=== PATIENT | male | born 1960 | race Caucasian/White ===

== ENCOUNTER 2019-08-08 20:57 | Emergency (ER) | payer OTHER ==
[~2019-08-08] VITALS: Ht 182.9 cm; Wt 93.0 kg
[2019-08-08] MEDS ORDERED: ALBUTEROL INHALER (21:04)
[2019-08-08 21:34] LABS: INFLUENZA A ANTIGEN Negative (Negative); INFLUENZA B ANTIGEN Negative (Negative)
[2019-08-08 21:43] LABS: ABSOLUTE BASOPHILS 0.1 thou/uL (0.0-0.2); ABSOLUTE EOSINOPHILS 0.2 thou/uL (0.0-0.7); ABSOLUTE LYMPHOCYTES 1.5 thou/uL (0.8-5.3); ABSOLUTE NEUTROPHILS 10.1 thou/uL (1.6-8.1); BASOPHILS 0.7 %; EOSINOPHILS 1.5 %; HEMATOCRIT 46.5 % (42.0-52.0); HEMOGLOBIN 15.9 gm/dL (14.0-18.0); LYMPHOCYTES 11.1 %; MCH 31.2 pg (26.0-34.0); MCHC 34.2 g/dL (28.0-37.0); MCV 91.2 fL (80.0-100.0); MONOCYTES 14.3 %; MPV 8.1 fl. (7.2-11.1); NUCLEATED RBCS 0 /100WBC; PLATELET COUNT* 277 thou/uL (150-400); POLYS 72.4 %; RBC 5.09 mil/uL (4.50-6.00); RDW-CV 13.9 % (10.5-14.5); WBC 13.9 thou/uL (4.0-11.0)
[2019-08-08 21:52] LABS: CALCIUM 8.7 mg/dL (8.5-10.1); CREATININE 1.1 mg/dL (0.6-1.3); POTASSIUM 3.2 mmol/L (3.5-5.1)
[2019-08-08 22:03] LABS: ALBUMIN 3.3 g/dL (3.4-5.0); TOTAL BILIRUBIN 0.4 mg/dL (<0.1-1.0); TOTAL PROTEIN 8.2 g/dL (6.4-8.2)
[2019-08-08] MEDS ORDERED: PROAIR HFA8.5 GM INH (23:07)
[2019-08-08] MEDS ORDERED: PREDNISONE50 MG PO (23:07)
[2019-08-08 23:25] VITALS: BP 128/70
== END 2019-08-08 23:25 | disposition home or self-care (01) ==
LOC: M.ERS 20:57
PROVIDERS: Physician Assistant
DX: J45.909 Unspecified asthma, uncomplicated (principal)

== ENCOUNTER 2019-09-07 08:46 | Emergency (ER) | payer OTHER ==
[~2019-09-07] VITALS: Ht 182.9 cm; Wt 93.0 kg
[~2019-09-07 08:46] MED LIST: ALBUTEROL INHALER; PREDNISONE50 MG PO; PROAIR HFA8.5 GM INH
[2019-09-07 09:24] LABS: INFLUENZA A ANTIGEN Negative (Negative); INFLUENZA B ANTIGEN Negative (Negative)
[2019-09-07] MEDS ORDERED: AZITHROMYCIN 2250 MG PO (10:49)
[2019-09-07] MEDS ORDERED: VENTOLIN HFA 1818 GM INH (10:49)
[2019-09-07] MEDS ORDERED: MEDROLDOSEPACK PO (10:49)
[2019-09-07 10:56] VITALS: BP 111/69
== END 2019-09-07 10:57 | disposition home or self-care (01) ==
LOC: M.ERS 08:46
PROVIDERS: Emergency Medicine
DX: J45.901 Unspecified asthma with (acute) exacerbation (principal); F17.210 Nicotine dependence, cigarettes, uncomplicated

== ENCOUNTER 2020-02-28 17:26 | Emergency (ER) | payer OTHER ==
[~2020-02-28] VITALS: Ht 195.6 cm; Wt 82.1 kg
[~2020-02-28 17:26] MED LIST changes: +AZITHROMYCIN 2250 MG PO; +MEDROLDOSEPACK PO; +VENTOLIN HFA 1818 GM INH
[2020-02-28] MEDS ORDERED: MEDROLDOSEPACK PO (18:20)
[2020-02-28] MEDS ORDERED: HYDROCORTISONE3011 TOP (18:20)
[2020-02-28 18:42] VITALS: BP 144/93
== END 2020-02-28 18:42 | disposition home or self-care (01) ==
LOC: M.ERS 17:26
DX: L25.9 Unspecified contact dermatitis, unspecified cause (principal); J45.909 Unspecified asthma, uncomplicated; F17.210 Nicotine dependence, cigarettes, uncomplicated